=== PATIENT | female | born 1980 | race Caucasian/White ===

== ENCOUNTER 2019-05-01 08:39 | Emergency (ER) | payer OTHER, SELFPAY ==
--- NOTE | 2019-05-01 08:49 | ED.GENADULT ---
HPI - General Adult General Chief complaint: Upper Respiratory Infection Stated complaint: SORE THROAT RASH Time Seen by Provider: 05/01/19 08:57 Source: patient and RN notes reviewed Mode of arrival: ambulatory Limitations: no limitations History of Present Illness HPI narrative: This patient started having onset of a sore throat without any fever last night and swell as a red slightly raised rash on her arms anterior chest and on the facial area. This has not been itchy. She has not changed anything she puts on the skin for cleansing or bathing purposes. She has not had any noticeable fever. She has not had any ear pain, no drainage from the ears, no nasal drainage, no cough. There is been no nausea, no vomiting, no diarrhea. She has had no hematuria, no dysuria, no pyuria. She has not been traveling. Her son has been ill x2 days with sore throat and fever and he had a rapid strep test which was positive today. No other exposure known to anyone with strep throat, mono, influenza, bronchitis, or pneumonia that they are aware of. Related Data Allergies Allergy/AdvReac Type Severity Reaction Status Date / Time acetaminophen AdvReac Severe Rash Verified 05/01/19 08:59 hydrocodone AdvReac Severe Rash Verified 09/02/16 18:23 Review of Systems Review of Systems: Narrative: CONSTITUTIONAL: Denies fever, chills, or sweats. Noncontributory except as pertains to the past medical history and history of present illness. EYES: Denies visual changes, redness, or discharge. ENT: Denies rhinorrhea, congestion, sore throat, or otalgia. CARDIOVASCULAR: Denies chest pain, palpitations, or edema. RESPIRATORY: Denies cough or dyspnea. GASTROINTESTINAL: Denies abdominal pain, nausea, vomiting, or diarrhea. GENITOURINARY: Denies dysuria or hematuria. SKIN: Denies rash or itching. MUSCULOSKELETAL: Denies back pain, joint pain, or myalgia. NEUROLOGIC: Denies headache, numbness, or weakness. PSYCHIATRIC: Denies anxiety or depression. [facility] Family History Family History (Updated 03/16/16 @ 14:04 by DOCTOR UNKNOWN) Mother Diabetes mellitus Grandparent Diabetes mellitus Other Hypertension Social History Social History Smoking status: Never smoker Alcohol intake: never Comments At time of signature, I have reviewed and agree with nursing past medical, surgical, social, and family history.Please see nursing chart for further information. There is no relevant family history pertinent to the presenting complaint. Exam Narrative: Exam Narrative: GENERAL: Well-appearing, well-nourished, and in no acute distress. HEAD: Normocephalic, atraumatic. EYES: PERRLA and EOMI. EARS: TM's clear bilaterally and the canals are clear. NOSE: Nares clear, no rhinorrhea or epistaxis. THROAT:Mucous membranes moist.Oropharynx is erythematous with mild exudates present. NECK: Supple. No adenopathy of the neck, supraclavicular, axillary, or inguinal areas. RESPIRATORY: No respiratory distress. Airway patent. Respirations non-labored. Clear to auscultation. There are no wheezes, no rales, no retractions, no use of accessory muscle respirations. Patient's not cyanotic and not dyspneic. HEART: Regular rate and rhythm. No murmur heard. Normal peripheral pulses. ABDOMEN: Soft, nontender, nondistended, normal active bowel sounds.No masses. NO rebound or guarding, No organomegaly. There is no CVA pain. No pain McBurney's point. Patient has a negative Ricks sign and negative Rovsing sign. There are no pulsatile masses no audible bruits. EXTREMITIES: No clubbing/cyanosis/ edema. Normal strength & range of motion. SKIN: Warm, dry.Normal color. Patient is well-nourished well-hydrated has moist mucous membranes and no tenting of the skin. The patient has a fine red raised sandpaper rash consistent with scarlatina rash on the ventral as well as less extent on the dorsal aspects of both forearms and upper arms as well as on the forehead and cheeks as well as the anteri
[2019-05-01 08:56] VITALS: BP 138/93; PULSE 86; RESP 16; TEMP 37.3; O2SAT 97
== END 2019-05-01 09:14 | disposition home or self-care (01) ==
PROVIDERS: Emergency Provider Family Medicine
DX: J02.0 Streptococcal pharyngitis (principal)
CPT/HCPCS: 87880; 99213; G0463